=== PATIENT | female | born 1960 | race American Indian/Alaskan Native ===

== ENCOUNTER 2018-03-21 07:53 | Outpatient (CLI) | payer BC ==
--- NOTE | 2018-03-22 09:48 | Mammography Report ---
Bilateral mammogram: No previous studies are available. CAD study utilized. Findings: Heterogeneous breast parenchyma bilaterally. 5 mm circumscribed density in the posterior inner left breast and inner right breast. No microcalcifications. Normal axilla. Impression: Focal asymmetry left and right breast. Recommend spot compression and if necessary sonographic examination. BI-RADS CATEGORY: 0 = Needs additional imaging evaluation ACR BI-RADS MAMMOGRAPHIC CODES: 0 = Needs additional imaging evaluation; 1 = Negative; 2 = Benign; 3 = Probably benign; 4 = Suspicious; 5 = Malignant; 6 = Known biopsy-proven malignancy COMMENT: 1. Dense breast tissue, i.e., adenosis, fibrocystic changes, etc., may obscure an underlying neoplasm. 2. Approximately 10% of cancers are not detected with mammography. 3. A negative mammography report should not delay biopsy if a clinically suspicious mass is present. COMMENT: Patient follow-up letters are generated in [employer].
== END 2018-03-21 07:54 | disposition home or self-care (01) ==
LOC: SPVWC 07:53
PROVIDERS: ATTEND Internal Medicine
DX: Z12.31 Encounter for screening mammogram for malignant neoplasm of breast (principal)
CPT/HCPCS: 77067

== ENCOUNTER 2019-03-30 08:54 | Outpatient (CLI) | payer BC ==
--- NOTE | 2019-04-02 12:08 | Mammography Report ---
DIGITAL SCREENING MAMMOGRAM WITH CAD, 03/30/2019 INDICATION: Routine screening mammography. TECHNIQUE: Digital bilateral 2D mammography was obtained in the craniocaudal and mediolateral obliq ue projections. This examination was interpreted with the benefit of Computer-Aided Detection analysi s. COMPARISON: 03/21/2018 FINDINGS: Breast Density: The breasts are heterogeneously dense, which may obscure small masses. Bilateral asymmetries are new and require additional imaging. No architectural distortion or suspicio us calcifications. IMPRESSION: Bilateral asymmetries requiring additional imaging. Recommend recall for bilateral spot c ompression views and bilateral breast ultrasound if needed. Follow up recommendation: Routine yearly Category 0: Incomplete. Needs additional imaging evaluation and/or prior mammograms for comparison. A "normal" or negative report should not discourage follow up or biopsy of a clinically significant f inding. A written summary of these findings will be mailed to the patient. The patient will be entered into a mammography reporting system which will generate a reminder letter for the patient's next appointmen t at the appropriate interval. The [employer] recommends yearly mammograms starting at age 40 and continuing as l jared as a woman is in good health. Breast MRI is recommended for women with an approximate 20-25% or greater lifetime risk of breast cancer, including women with a strong family history of breast or ova pepe cancer or who have been treated for Hodgkin's disease. Signer Name: Sandeep Torres MD Signed: 04/02/2019 12:04 PM Workstation Name: [id number]
--- NOTE | 2019-04-02 12:34 | Mammography Report ---
BONE DEXA CLINICAL: Postmenopausal. TECHNIQUE: 2 site bone DEXA performed on an Hologic scanner. FINDINGS: The average BMD of the lumbar spine L1-L4 is 1.291g/cm squared with a T score of +1.3 and a Z score o f +2.6. The average total BMD of the left hip is 1.135 g/cm squared with a T score of +0.7and a Z score of +1 .3. IMPRESSION: 1. WHO classification: Normal with average fracture risk based on spine measurements. 2. WHO classification Normal with average fracture risk based on left hip measurements. RECOMMENDATION: Clinical correlation and routine screening. Definitions: BMD equal bone mineral density T score = BMD related to peak bone mass of young adult ([place] expressed an standard deviation) Z score = age-matched BMD expressed in SD World health organization (WHO) diagnostic criteria Normal T score greater than equal to 1 standard deviation Osteopenia T score between -1 and -2.4 standard deviation Osteoporosis T score -2.5 standard deviation or below. Note: BMD is not the only risk factor for fracture; also consider factors such as the patient's age, risk of falling, previous osteoporotic fracture, family history of osteoporotic fractures, current sm oker and low body weight. Z scores are not calculated if greater than 80 years of age. Signer Name: Sandeep Torres MD Signed: 04/02/2019 12:30 PM Workstation Name: [id number]
== END 2019-03-30 08:55 | disposition home or self-care (01) ==
LOC: SPVWC 08:54
PROVIDERS: ATTEND Internal Medicine
DX: Z12.31 Encounter for screening mammogram for malignant neoplasm of breast (principal); Z13.820 Encounter for screening for osteoporosis; Z78.0 Asymptomatic menopausal state
CPT/HCPCS: 77067; 77080

== ENCOUNTER 2019-04-16 10:49 | Outpatient (CLI) | payer BC ==
--- NOTE | 2019-04-17 08:12 | Mammography Report ---
BILATERAL DIGITAL DIAGNOSTIC MAMMOGRAM WITH CAD -- 04/16/2019 BILATERAL COMPLETE BREAST ULTRASOUND INDICATION: Recalled for bilateral mammographic asymmetries. ABNORMAL MAMMO TECHNIQUE: Digital mammographic imaging was performed. Spot compression views were obtained. This ex amination was interpreted with the benefit of Computer-Aided Detection (CAD) analysis. COMPARISON: 03/30/2019 FINDINGS: Breast Density: The breasts are heterogeneously dense, which may obscure small masses. MAMMOGRAPHIC FINDINGS: Bilateral spot compression views demonstrate persistent bilateral mammographic asymmetries. ULTRASOUND FINDINGS: Complete sonographic evaluation of all 4 quadrants and retroareolar region was p erformed. Ultrasound of the right breast demonstrated a benign cyst at 1:00 2 cm from the nipple me asuring 9 x 8 x 4 mm. It has a single thin septation. A benign cyst at 6:00 4 cm from the nipple jesus ures 5 mm. A 5 mm retroareolar complex cyst at 1:00. No solid mass or suspicious shadowing of the rig ht breast. Ultrasound of the right axilla demonstrated no suspicious lymph nodes. Ultrasound of the left breast demonstrated several benign cysts and no solid mass or suspicious shado wing. A cyst at 6:00 2 cm from the nipple measures 5 mm. A complex cyst at 7:00 5 cm from the nipple measures 7 x 10 x 4 mm. Ultrasound of the left axilla demonstrated no suspicious lymph nodes. IMPRESSION: Bilateral benign cysts and no suspicious findings. Follow up recommendation: Routine yearly BI-RADS Category 2: Benign. A "normal" or negative report should not discourage follow up or biopsy of a clinically significant f inding. A written summary of these findings will be mailed to the patient. The patient will be entered into a mammography reporting system which will generate a reminder letter for the patient's next appointmen t at the appropriate interval. According to the [employer], yearly mammograms are recommended starting at age 40 and continuing as long as a woman is in good health. Breast MRI is recommended for women with an gil roximately 20-25% or greater lifetime risk of breast cancer, including women with a strong family his tory of breast or ovarian cancer and women who have been treated for Hodgkin's disease. Signer Name: Sandeep Torres MD Signed: 04/17/2019 8:08 AM Workstation Name: [id number]
== END 2019-04-16 10:50 | disposition home or self-care (01) ==
LOC: SPVWC 10:49
PROVIDERS: ATTEND Physician Assistant
DX: N60.01 Solitary cyst of right breast (principal); R92.8 Other abnormal and inconclusive findings on diagnostic imaging of breast
CPT/HCPCS: 77066

== ENCOUNTER 2020-04-17 08:59 | Outpatient (CLI) | payer BC ==
--- NOTE | 2020-04-22 11:40 | Mammography Report ---
DIGITAL SCREENING MAMMOGRAM WITH CAD, 04/22/2020 CLINICAL INFORMATION / INDICATION: Routine screening mammography. TECHNIQUE: Digital bilateral 2D mammography was obtained in the craniocaudal and mediolateral obliqu e projections. This examination was interpreted with the benefit of Computer-Aided Detection analysis . COMPARISON: 04/16/2019, 03/30/2019, 03/29/2018, 03/21/2018 FINDINGS: Breast Density: The breasts are heterogeneously dense, which may obscure small masses. No dominant mass, suspicious calcifications, or architectural distortion in either breast. There is a persistent stable nodular density along the inner left breast middle depth. Other previous ly described cysts/asymmetries are not seen. IMPRESSION: No mammographic evidence of malignancy. Follow up recommendation: Routine yearly BI-RADS Category 2: Benign. A "normal" or negative report should not discourage follow up or biopsy of a clinically significant f inding. A written summary of these findings will be mailed to the patient. The patient will be entered into a mammography reporting system which will generate a reminder letter for the patient's next appointmen t at the appropriate interval. The [employer] recommends yearly mammograms starting at age 40 and continuing as l jared as a woman is in good health. Breast MRI is recommended for women with an approximate 20-25% or greater lifetime risk of breast cancer, including women with a strong family history of breast or ova pepe cancer or who have been treated for Hodgkin's disease. Signer Name: Eriberto Avila MD Signed: 04/22/2020 11:36 AM Workstation Name: [id number]
== END 2020-04-17 09:00 | disposition home or self-care (01) ==
LOC: SPVWC 08:59
PROVIDERS: ATTEND Internal Medicine
DX: Z12.31 Encounter for screening mammogram for malignant neoplasm of breast (principal)
CPT/HCPCS: 77067